=== PATIENT | male | born 2000 | race African-American/Black ===

== ENCOUNTER → 2021-01-28 | Outpatient (CLI) | payer OTHER ==
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
== END ==
LOC: KCIC 09:06
PROVIDERS: ATTEND Family Medicine
DX: S82.51XA Displaced fracture of medial malleolus of right tibia, initial encounter for closed fracture (principal); R60.9 Edema, unspecified; X58.XXXA Exposure to other specified factors, initial encounter; Y93.89 Activity, other specified; Y92.89 Other specified places as the place of occurrence of the external cause; Y99.8 Other external cause status
CPT/HCPCS: 73610